=== PATIENT | female | born 1940 | race Asian ===

== ENCOUNTER 2017-01-12 20:27 | Emergency (ER) | payer MEDICARE, BC ==
[~2017-01-12] VITALS: Ht 165.1 cm; Wt 72.6 kg
--- NOTE | 2017-01-12 20:28 | Emergency Room Report ---
History of Present Illness General Chief Complaint: Altered Level of Consciousness Source: Patient, EMS (Marco Abreu) Present Illness HPI Patient 76-year-old female presented after a decreased blood pressure. Patient prior to hypertension. She is taking unknown blood pressure medications. Patient presented by EMS. She was noted to have low blood pressure and low heart rate. Prior history of CVA. Patient was noted to have some increased altered mental status compared to her baseline. Patient was noted to be hypotensive by EMS. She started on IV fluids without any change in her blood pressure. (Marco Abreu) Allergies: Coded Allergies: No Known Allergies (Unverified , 01/12/17) Patient History Past Medical History: see triage record Reviewed Nursing Documentation: PMH: Agreed, PSxH: Agreed (Marco Abreu) Nursing Documentation-PMH Past Medical History: No History, Except For Hx Hypertension: Yes Hx Cerebrovascular Accident: Yes (Mraco Abreu) Review of Systems All Other Systems: limited - by mental status (Marco Abreu) Physical Exam Vital Signs Date Time Temp Pulse Resp B/P (MAP) Pulse Ox O2 Delivery O2 Flow Rate FiO2 01/12/17 20:21 56 14 95/48 98 Room Air Sp02 EP Interpretation: reviewed, normal General Appearance: normal inspection, well appearing, no apparent distress, alert, GCS 15, non-toxic Head: atraumatic ENT: normal ENT inspection, hearing grossly normal, normal voice Neck: normal inspection, full range of motion, supple, no bony tend Respiratory: normal inspection, lungs clear, normal breath sounds, no respiratory distress, no retraction, no wheezing Cardiovascular #1: regular rate, rhythm, no edema Gastrointestinal: normal inspection, normal bowel sounds, non tender, soft, no guarding, no hernia Genitourinary: no CVA tenderness Musculoskeletal: normal inspection, back normal, normal range of motion Neurologic: normal inspection, alert, responsive, speech normal Psychiatric: normal inspection, judgement/insight normal, mood/affect normal Skin: normal inspection, normal color, no rash (Marco Abreu) Medical Decision Making Diagnostic Impression: Primary Impression: Altered level of consciousness Additional Impression: Hypotension ER Course Patient is a 76-year-old female who presented after having low blood pressure. Differential diagnosis included was not limited to sepsis, pulmonary embolism, myocardial infarction, medication overdose among others.Because of complexity of patient's case laboratory testing and imaging studies were ordered. Laboratory testing was unremarkable. The patient was noted to have multiple medications for blood pressure which included clonidine, hydralazine, beta gilberto as well as calcium channel gilberto. Patient was observed in the emergency department was stable throughout stay Labs Test 01/12/17 21:40 White Blood Count 7.5 K/UL (4.8-10.8) Red Blood Count 3.30 M/UL (4.20-5.40) Hemoglobin 10.5 G/DL (12.0-16.0) Hematocrit 31.8 % (37.0-47.0) Mean Corpuscular Volume 97 FL (80-99) Mean Corpuscular Hemoglobin 31.8 PG (27.0-31.0) Mean Corpuscular Hemoglobin Concent 32.9 G/DL (32.0-36.0) Red Cell Distribution Width 11.4 % (11.6-14.8) Platelet Count 341 K/UL (150-450) Mean Platelet Volume 5.3 FL (6.5-10.1) Neutrophils (%) (Auto) 71.9 % (45.0-75.0) Lymphocytes (%) (Auto) 21.6 % (20.0-45.0) Monocytes (%) (Auto) 4.6 % (1.0-10.0) Eosinophils (%) (Auto) 1.3 % (0.0-3.0) Basophils (%) (Auto) 0.6 % (0.0-2.0) Prothrombin Time 10.1 SEC (9.30-11.50) Prothromb Time International Ratio 1.0 (0.9-1.1) Activated Partial Thromboplast Time 25 SEC (23-33) Sodium Level 137 mEQ/L (135-145) Potassium Level 4.2 mEQ/L (3.4-4.9) Chloride Level 105 mEQ/L (98-107) Carbon Dioxide Level 18 mEQ/L (20-30) Anion Gap 14 (5-15) Blood Urea Nitrogen 23 mg/dL (7-23) Creatinine 1.1 mg/dL (0.5-0.9) Estimat Glomerular Filtration Rate mL/min (>60) Glucose Level 192 mg/dL (74-106) Calcium Level 9.2 mg/dL (8.6-10.2) Total Bilirubin 0.3 mg/dL (0.0-1.2) Aspartate Amino Transf (AST/SGOT) 9 U/L (5-40) Alanine Aminotransferase (ALT/SGPT) 9 U/L (3-33) Alkaline Phosphatase 53 U/L (35-104) Troponin I < 0.30 ng/mL (<=0.30) Pro-B-Type Natriuretic Peptide 1084 pg/mL (0-125) Total Protein 6.6 g/dL (6.6-8.7) Albumin 3.7 g/dL (3.5-5.2) Globulin 2.9 g/dL Albumin/Globulin Ratio 1.2 (1.0-2.7) Lipase 40 U/L (< 60) Thyroid Stimulating Hormone (TSH) 2.330 uIU/mL (0.300-4.500) (Marco Abreu) ER Course Received signout 76-year-old female hypotension, has now been normotensive since being in the emergency room Hypotension was likely medication induced Patient stable for discharge Patient to followup with primary care DrRancho (Luis E Hill M.D.) Last Vital Signs Date Time Temp Pulse Resp B/P (MAP) Pulse Ox O2 Delivery O2 Flow Rate FiO2 01/12/17 20:21 56 14 95/48 98 Room Air Status: improved (Marco Abreu) Disposition: HOME, SELF-CARE Condition: Stable Marco Abreu Jan 12, 2017 20:28 Luis E Hill M.D. Jan 13, 2017 01:42
[2017-01-12 20:35] VITALS: BP 108/58
[2017-01-12 22:05] VITALS: BP 112/60
[2017-01-12 22:17] LABS: TROPONIN I < 0.30 ng/mL (<=0.30)
[2017-01-12 22:20] LABS: ALANINE AMINOTRANSFERASE 9 U/L (3-33); ALBUMIN/GLOBULIN RATIO 1.2 (1.0-2.7); ANION GAP 14 (5-15); ASPARTATE AMINO TRANSFERASE 9 U/L (5-40); CALCIUM 9.2 mg/dL (8.6-10.2); CARBON DIOXIDE 18 mEQ/L (20-30); CHLORIDE 105 mEQ/L (98-107); CREATININE 1.1 mg/dL (0.5-0.9); HEMOLYSIS 3; LIPASE 40 U/L (< 60); POTASSIUM 4.2 mEQ/L (3.4-4.9); SODIUM 137 mEQ/L (135-145); TOTAL PROTEIN 6.6 g/dL (6.6-8.7)
[2017-01-12 22:30] LABS: BASOPHILS % (AUTO) 0.6 % (0.0-2.0); EOSINOPHILS % (AUTO) 1.3 % (0.0-3.0); LYMPHOCYTES % (AUTO) 21.6 % (20.0-45.0); MEAN CORPUSCULAR HEMOGLOBIN 31.8 PG (27.0-31.0); MEAN CORPUSCULAR HGB CONC 32.9 G/DL (32.0-36.0); MEAN CORPUSCULAR VOLUME 97 FL (80-99); MEAN PLATELET VOLUME 5.3 FL (6.5-10.1); MONOCYTES % (AUTO) 4.6 % (1.0-10.0); NEUTROPHILS % (AUTO) 71.9 % (45.0-75.0); PLATELET COUNT 341 K/UL (150-450); RED CELL DISTRIBUTION WIDTH 11.4 % (11.6-14.8); WHITE BLOOD COUNT 7.5 K/UL (4.8-10.8)
[2017-01-12 22:34] LABS: PROTHROMBIN TIME 10.1 SEC (9.30-11.50)
[2017-01-13] MEDS ORDERED: ASPIRIN81 MG ORAL (00:09)
[2017-01-13] MEDS ORDERED: CATAPRES0.3 MG ORAL (00:09)
[2017-01-13] MEDS ORDERED: ADALAT20 MG ORAL (00:09)
[2017-01-13] MEDS ORDERED: HYDRALAZINE HC100 MG ORAL (00:09)
[2017-01-13] MEDS ORDERED: METFORMIN HCL1000 M1 ORAL (00:09)
[2017-01-13] MEDS ORDERED: SPIRONOLACTONE1 EACH ORAL (00:09)
[2017-01-13] MEDS ORDERED: CARVEDILOL25 MG ORAL (00:09)
[2017-01-13] MEDS ORDERED: PANTOPRAZOLE SO40 MG ORAL (00:09)
[2017-01-13 00:16] VITALS: BP 123/68
[2017-01-13 01:40] VITALS: BP 134/64
[2017-01-13 01:50] VITALS: BP 134/64
== END 2017-01-13 01:50 | disposition home or self-care (01) ==
LOC: EDBD 20:27 → EMR 21:52
DX: R41.82 Altered mental status, unspecified (principal); I95.9 Hypotension, unspecified; Z86.73 Personal history of transient ischemic attack (TIA), and cerebral infarction without residual deficits; I10 Essential (primary) hypertension; Z79.899 Other long term (current) drug therapy
CPT/HCPCS: 36415; 80053; 83690; 83880; 84443; 84484; 85025; 85610; 85730; 99283